=== PATIENT | female | born 1960 | race Caucasian/White ===

== ENCOUNTER 2018-03-26 11:45 | Day surgery (SDC) | payer OTHER ==
[2018-03-26] MEDS: NS 1,000 ML IV (13:30)
[2018-03-26] MEDS ORDERED: LIDOCAINE 2% INJ 100 MG/5 ML SDV (FOR ANES.) As Ordered ×3 (13:44→15:40)
[2018-03-26] MEDS ORDERED: PROPOFOL 200 MG/20 ML VIAL As Ordered ×5 (13:44→15:51)
[2018-03-26] MEDS ORDERED: ePHEDrine SULFATE 25 MG/5 ML(5MG/ML) SYRINGE As Ordered (13:55)
== END 2018-03-26 17:10 | disposition home or self-care (01) ==
LOC: M OPP 11:45
DX: D64.9 Anemia, unspecified (principal); K31.7 Polyp of stomach and duodenum; I10 Essential (primary) hypertension; E78.5 Hyperlipidemia, unspecified; K58.9 Irritable bowel syndrome, unspecified; K64.9 Unspecified hemorrhoids; Z86.010 Personal history of colon polyps; K21.9 Gastro-esophageal reflux disease without esophagitis; R12 Heartburn; R10.2 Pelvic and perineal pain; E66.9 Obesity, unspecified; F17.220 Nicotine dependence, chewing tobacco, uncomplicated; Z88.2 Allergy status to sulfonamides; Z79.899 Other long term (current) drug therapy
CPT/HCPCS: 45378

== ENCOUNTER 2020-03-18 13:13 | Emergency (ER) | payer OTHER ==
[~2020-03-18 13:13] MED LIST: CETI10CH PO; FERR325T82 PO; FLON1SPR NARES; GEMF600T5 PO; HYDR-3713 PO; LISI-538 PO; LOPE2CA PO; MORP-69 PO; MULT1TAB10 PO; OMEP1CAP73 PO; VITA100067 PO
--- NOTE | 2020-03-18 13:41 | REPVR ---
PROCEDURE INFORMATION: Exam: CT Head Without Contrast Exam date and time: 03/18/2020 1:28 PM Age: 60 years old Clinical indication: Altered mental status/memory loss TECHNIQUE: Imaging protocol: Computed tomography of the head without contrast. Radiation optimization: All CT scans at this facility use at least one of these dose optimization techniques: automated exposure control; mA and/or kV adjustment per patient size (includes targeted exams where dose is matched to clinical indication); or iterative reconstruction. COMPARISON: No relevant prior studies available. FINDINGS: Brain: Normal. No hemorrhage. Unremarkable white matter. No mass effect. Cerebral ventricles: No ventriculomegaly. Bones/joints: Unremarkable. No acute fracture. Paranasal sinuses: Visualized sinuses are unremarkable. No fluid levels. Mastoid air cells: Visualized mastoid air cells are well aerated. Soft tissues: Unremarkable. IMPRESSION: No acute intracranial abnormality. Electronically signed by: Sara Alcantar On 03/18/2020 13:40:50 PM
[2020-03-18] MEDS ORDERED: NS 1,000 ML IV ONE ×2 (13:45→16:30)
[2020-03-18] MEDS ORDERED: cefTRIAXone SOD 2 GM in D5W MINI-BAG PLUS 50 ML IV ONE (13:45)
--- NOTE | 2020-03-18 13:54 | REPVR ---
PROCEDURE INFORMATION: Exam: XR Chest, 1 View Exam date and time: 03/18/2020 1:46 PM Age: 60 years old Clinical indication: Other: Altered mental status TECHNIQUE: Imaging protocol: XR of the chest Views: 1 view. COMPARISON: No relevant prior studies available. FINDINGS: Lungs: Hypoinflation, without significant airspace disease. Pleural space: No pleural effusion. Heart/Mediastinum: Borderline cardiomegaly. Bones/joints: Degenerative change. IMPRESSION: Hypoinflation, without significant airspace or pleural disease. Electronically signed by: Ron Neil On 03/18/2020 13:54:21 PM
[2020-03-18 14:00] LABS: VENOUS BASE EXCESS -12.3 (-2.0-2.0); VENOUS HCO3 16.5 MEQ/L (23.0-27.0); VENOUS O2 SATURATION 98.9 % (60.0-80.0); VENOUS PARTIAL PRESSURE CO2 54.1 mmHg (38.0-50.0); VENOUS PARTIAL PRESSURE O2 159.5 mmHg (30.0-50.0); VENOUS PH 7.103 UNITS (7.330-7.430); VENOUS STANDARD HCO3 14.6 MEQ/L; VENOUS TOTAL CO2 18.2 MEQ/L (24.0-28.0)
[2020-03-18] MEDS ORDERED: ACETAMINOPHEN 650 MG SUPP PR ONE (14:00)
[2020-03-18] MEDS ORDERED: ACETAMINOPHEN 650 MG SUPP As Ordered ONE (14:00)
[2020-03-18 14:09] LABS: BASO # 0.1 10^3/uL (0.0-0.2); BASO % 0.5 % (0.0-1.0); EOS # 0.3 10^3/uL (0.0-0.5); EOS % 2.3 % (0.0-3.0); HEMATOCRIT 21.8 % (36.0-47.0); LYMPH # 1.6 10^3/uL (1.5-5.0); LYMPH % 14.6 % (24.0-44.0); MEAN CORPUSCULAR HEMOGLOBIN 31.5 pg (27.0-33.0); MEAN CORPUSCULAR HGB CONC 28.9 g/dl (32.0-36.5); MONO # 1.3 10^3/uL (0.0-0.8); MONO % 11.3 % (0.0-5.0); NEUTROPHILS # 7.7 10^3/uL (1.5-8.5); PLATELET COUNT, AUTOMATED 289 10^3/uL (150-450); WHITE BLOOD COUNT 11.1 10^3/uL (4.0-10.0)
[2020-03-18] MEDS ORDERED: NS 2,840 ML in IV 1 EA IV ONE (14:15)
[2020-03-18 14:23] LABS: HEMOGLOBIN 6.3 g/dl (12.0-15.5)
[2020-03-18 14:35] LABS: ACETAMINOPHEN LEVEL < 2.0 UG/ML (10.0-30.0); ALT/SGPT 21 U/L (12-78); BILIRUBIN,DIRECT 0.2 MG/DL (0.0-0.2); BILIRUBIN,TOTAL 0.3 MG/DL (0.2-1.0); ETHYL ALCOHOL (ETHANOL) < 0.003 % (0.000-0.010); SALICYLATE LEVEL < 1.7 MG/DL (5.0-30.0); THYROID STIMULATING HORMONE 0.432 uIU/ML (0.358-3.740)
[2020-03-18] MEDS ORDERED: NALOXONE INJ 0.4MG/1ML VIAL (J2310 PER 1MG) As Ordered ONE (14:38)
[2020-03-18] MEDS ORDERED: NALOXONE INJ 0.4MG/1ML VIAL (J2310 PER 1MG) IV STA (14:41)
[2020-03-18 14:44] LABS: OSMOLALITY SERUM 303 MOSM/KG (280-301)
[2020-03-18 14:51] LABS: AMPHETAMINES LEVEL URINE NEGATIVE (NEGATIVE); BARBITURATES URINE NEGATIVE (NEGATIVE); BENZODIAZEPINES URINE NEGATIVE (NEGATIVE); CANNABINOIDS URINE NEGATIVE (NEGATIVE); COCAINE METABOLITE URINE NEGATIVE (NEGATIVE); METHADONE URINE NEGATIVE (NEGATIVE); OPIATES URINE POSITIVE (NEGATIVE); PHENCYCLIDINE URINE NEGATIVE (NEGATIVE)
[2020-03-18 14:57] LABS: POTASSIUM SERUM 6.3 MEQ/L (3.5-5.1)
--- NOTE | 2020-03-18 15:36 | REPVR ---
PROCEDURE INFORMATION: Exam: CT Abdomen And Pelvis Without Contrast Exam date and time: 03/18/2020 3:18 PM Age: 60 years old Clinical indication: Abdominal pain; Generalized; Prior surgery; Surgery date: 3-7 days post-operative; Additional info: S/P nephrectomy TECHNIQUE: Imaging protocol: Computed tomography of the abdomen and pelvis without contrast. Radiation optimization: All CT scans at this facility use at least one of these dose optimization techniques: automated exposure control; mA and/or kV adjustment per patient size (includes targeted exams where dose is matched to clinical indication); or iterative reconstruction. COMPARISON: No relevant prior studies available. FINDINGS: Detailed evaluation of the abdominal and pelvic viscera is somewhat limited in the absence of intravenous contrast. Pleural space: Interstitial prominence, mild dependent airspace disease, and trace pleural effusions. Liver: Diffuse fatty infiltration of the liver. Gallbladder and bile ducts: Dependent high attenuation bile and/or calculi in the gallbladder. Pancreas: No pancreatic mass or ductal dilatation. Spleen: Enlarged spleen measuring 12.7 cm in length. Adrenals: Normal right adrenal. Kidneys and ureters: Poorly characterized 3.1 by 1.8 by 2.4 cm ovoid density in the postoperative left nephrectomy bed, which can be re-evaluated on follow-up imaging to ensure interval resolution. Normal right renal morphology. No hydronephrosis. Stomach and bowel: Copious stool in the colon and rectum, consistent with constipation. Appendix: No acute appendicitis. Intraperitoneal space: No significant intraperitoneal fluid or free air. Vasculature: Vascular calcification. Normal caliber of the abdominal aorta. Lymph nodes: Subcentimeter lymph nodes. Urinary bladder: Calderón catheter in intraluminal air in the decompressed bladder. Reproductive: Status post hysterectomy. Bones/joints: Osteopenia. Degenerative change , disc bulging, and Schmorl's nodes. Soft tissues: Subcutaneous edema and emphysema in the abdominal wall. IMPRESSION: 1. Dependent high attenuation bile and/or calculi in the gallbladder. 2. Poorly characterized 3.1 by 1.8 by 2.4 cm ovoid density in the postoperative left nephrectomy bed, which can be re-evaluated on follow-up imaging to ensure interval resolution. 3. Copious stool in the colon and rectum, consistent with constipation. 4. Additional findings as described above. Electronically signed by: Ron Neil On 03/18/2020 15:36:39 PM
[2020-03-18] MEDS ORDERED: SOD POLYSTYRENE SULFONATE SUSP 30 GM/120 ML ENEMA PR ONE (16:00)
[2020-03-18] MEDS ORDERED: D5W 1,000 ML IV SCH (16:45)
[2020-03-18] MEDS ORDERED: PIPERACILLIN/TAZOBACTAM SOD 2.25 GM in D5W MINI-BAG PLUS 50 ML IV SCH (17:00)
[2020-03-18 17:04] VITALS: BP 102/54
[2020-03-18 17:19] VITALS: BP 98/52
[2020-03-18 17:19] LABS: FERRITIN 494 NG/ML (8-252); IRON (FE) 50 UG/DL (50-170); PERCENT SATURATION 21.1 % (13.2-45.0); TOTAL IRON BINDING CAPACITY 237 UG/DL (250-450)
[2020-03-18] MEDS ORDERED: VANCOMYCIN HCL 1,000 MG, VIAL MATE ADAPTER 1 EACH in D5W 250 ML IV SCH (18:00)
[2020-03-18] MEDS ORDERED: SODIUM BICARBONATE 150 MEQ in D5W 1,000 ML IV SCH (18:00)
[2020-03-18 18:04] VITALS: BP 100/54
[2020-03-18 18:41] VITALS: BP 102/73
[2020-03-18] MEDS ORDERED: VANCOMYCIN HCL 1,000 MG, VIAL MATE ADAPTER 1 EACH in D5W 250 ML IV ONE (19:00)
--- NOTE | 2020-03-18 19:42 | ECGEPIP ---
- ED Test Date: 2020-03-18 Pat Name: ANDER TALAVERA Department: Room: - Gender: Female [employer]: caridad : 1960 Requested By: Charo Geiger Order Number: [id number] Reading MD: Neo Hilliard Measurements Intervals [place] Rate: 96 P: 34 OR: 176 QRS: 28 QRSD: 76 T: 31 QT: 337 QTc: 427 Interpretive Statements SINUS RHYTHM LOW VOLTAGE THROUGHOUT SEPTAL MYOCARDIAL INFARCTION, PROBABLY OLD NSTTW ABNORMALITY(S) NO PRIORS FOR COMPARISON Electronically Signed on 03-18-2020 19:42:02 EDT by Neo Hilliard
--- NOTE | 2020-03-19 07:39 | ER ---
NEPHROLOGY CONSULTATION DATE OF CONSULTATION: 03/18/2020 CONSULTATION REQUESTED BY: Caitlin Tamez MD REASON FOR CONSULTATION: Acute renal failure and hyperkalemia. NOTE: Patient is seen in the Emergency Room at the request of admitting physician. HISTORY OF PRESENT ILLNESS: Ms. Foote is a 60-year-old female with known history of hypertension, hyperlipidemia, Vitamin D deficiency, allergies and gastroesophageal reflux disease. Apparently, she underwent a left-sided nephrectomy just about a week ago at [facility] in [place] and was discharged to home. For the last couple of days, she has not been doing well at home and was brought to the Emergency Room today with altered mentation, generalized weakness, twitching and was noticed to have a potassium level of 6.5 and creatinine also of 6.5. A nephrology consultation was requested, and patient was seen in the Emergency Room. PAST MEDICAL AND SURGICAL HISTORY: Patient is not able to provide information at present herself as she is very lethargic and has altered mentation. On review of her chart, her history includes history of hypertension, gastroesophageal reflux disease, hyperlipidemia and Vitamin D deficiency. She had a left-sided nephrectomy just about a week ago at the [facility] in [place] for possible renal mass. FAMILY HISTORY: Noncontributory. PERSONAL AND SOCIAL HISTORY: Patient is not able to provide any information at this point. Her family member is not available in the room at the time of my visit. REVIEW OF SYSTEMS: At present, patient is not able to provide information. According to the available information, she had a left nephrectomy about a week ago, which was most likely laparoscopic or robot-assisted and was not doing well at home for the last couple of days. She had decreased oral intake and developed altered mentation and generalized twitching today, due to which she was brought to the Emergency Room. Other than that, no further information is available. ALLERGIES: She has allergy to sulfa drugs. HOME MEDICATIONS: Include: 1. Hydrocodone. 2. Acetaminophen 5/325 mg one to two tablets as needed for pain. 3. Cetirizine 10 mg as needed for allergies. 4. Flonase allergy relief nasal spray once a day. 5. Gemfibrozil 600 mg one tablet daily. 6. Ferrous sulfate 325 mg daily. 7. Lisinopril 20 mg daily. 8. Morphine sulfate ER 15 mg tablet every 8 hours as needed for severe pain. 9. Multivitamin one tablet daily. 10. Omeprazole 20 mg daily. 11. Vitamin D 1,000 units daily. PHYSICAL EXAMINATION: GENERAL: Patient is quite lethargic. She opens her eyes, but not able to communicate much. VITAL SIGNS: Temperature 98.5 degrees Fahrenheit in the Emergency Room, heart rate 86 per minute, respiratory rate 28 per minute, blood pressure 100/54 mmHg and oxygen saturation 98%. She is currently on 2 liter oxygen via nasal cannula. HEENT: Head is atraumatic. Oral mucosa is dry. NECK: Supple and JVD not elevated. HEART: Heart sounds are regular. No audible pericardial friction rub. LUNGS: Sound clear to auscultation with poor inspiratory effort. ABDOMEN: Fullness and generalized tenderness. Bowel sounds are present. EXTREMITIES: No cyanosis or clubbing. NEUROLOGIC: She is somewhat obtunded and not able to answer questions appropriately, though she does open her eyes and moves her limbs. LABORATORY DATA IN THE EMERGENCY ROOM: Blood gas with pH 7.14 initially, pCO2 48, pO2 157 and bicarb 60. A repeat blood gas a couple of hours later showed pH 7.18, pCO2 40, pO2 78 and bicarb 15. Sodium 138, glucose 105, potassium 6.5, total CO2 initially 18 and repeat one down to 16, BUN 55 and creatinine 6.8. Troponin 0.016. Salicylate level less than 1.7 and Acetaminophen level less than 2.0. Urine opiate screen was positive. IMAGING STUDIES: She had a CAT scan of the abdomen and pelvis done, which showed normal right kidney and some fluid collection and possible hematoma in the surgical bed of her left nephrectomy. There was no hydronephrosis on the right side. Chest x-ray did not show any acute infiltrate or effusion. PROBLEMS: 1. Acute renal failure: Patient just had left nephrectomy done about a week ago. I am not aware of her baseline kidney function at present. Now, she is oliguric and hypotensive with possible sepsis. I will recommend aggressive I.V. fluid hydration and monitoring for her urine output and vital signs closely. There is no emergent need for dialysis at present as all her problems are likely to be corrected medically. 2. Hyperkalemia: This is related to acute renal failure, WALDEMAR inhibitor use and metabolic acidosis. I recommend I.V. sodium bicarbonate infusion and follow-up of her electrolytes. I would also recommend giving her one dose of calcium gluconate 10 mL intravenously. 3. Metabolic acidosis related to acute renal failure and possible sepsis: Sodium bicarbonate infusion is recommended and monitoring of her labs every few hours. I feel that her acidosis is going to correct just medically and she will not require dialysis. 4. Shock: She is hypotensive and possibly septic. She just had surgery recently and one of her abdominal incisions has some erythema. Aggressive I.V. fluid hydration and broad spectrum antibiotic coverage is recommended. Thank you for asking me to participate in the care of Mrs. Foote. I have discussed with the ER physician and also with the admitting physician at length. I recommended for possible transfer to [facility] as patient had major surgery just about a week ago and most of her problems are related to postoperative complications. If she stays here, then we will certainly follow her along with you and monitor closely. CHRISTINA
== END 2020-03-18 18:45 | disposition short-term general hospital (02) ==
LOC: EDBD 13:13 → M ED 13:13 → UNDOADMIN 15:54 → M ED INP 15:54 → ENRESERV 16:06
DX: N17.9 Acute kidney failure, unspecified (principal); A41.9 Sepsis, unspecified organism; I10 Essential (primary) hypertension; K76.0 Fatty (change of) liver, not elsewhere classified; R16.1 Splenomegaly, not elsewhere classified; R19.5 Other fecal abnormalities; M85.80 Other specified disorders of bone density and structure, unspecified site; M51.9 Unspecified thoracic, thoracolumbar and lumbosacral intervertebral disc disorder; R93.2 Abnormal findings on diagnostic imaging of liver and biliary tract; R91.8 Other nonspecific abnormal finding of lung field; E78.5 Hyperlipidemia, unspecified; F11.20 Opioid dependence, uncomplicated; F17.200 Nicotine dependence, unspecified, uncomplicated; Z90.5 Acquired absence of kidney; Z79.899 Other long term (current) drug therapy; Z88.2 Allergy status to sulfonamides
CPT/HCPCS: 36430; 36600; 70450; 71045; 74176; 80047; 80076; 80307; 82140; 82728; 82803; 83550; 83605; 83930; 84132; 84443; 84484; 85025; 85046; 86850; 86900; 86901; 86920; 87040; 87070; 87077; 87186; 87205; 93005; 93041; 96365; 96367; 96368; 96375; 99291; G0480; J0696; J2310; J2543; J3370; P9016

== ENCOUNTER → 2021-10-26 | Outpatient (CLI) | payer OTHER ==
[~2021-10-26] MED LIST changes: -LISI-538 PO; +LISI20TA33 PO
== END ==
LOC: M RAD 08:25
PROVIDERS: ATTEND Nurse Practitioner Family
DX: R11.2 Nausea with vomiting, unspecified (principal); R68.81 Early satiety; K30 Functional dyspepsia
CPT/HCPCS: 78264; A9541

== ENCOUNTER → 2022-03-15 | Outpatient (REF) | payer OTHER | LOC: M LAB REF 16:28 | PROVIDERS: ATTEND Podiatrist | DX: M79.672 Pain in left foot (principal); L03.032 Cellulitis of left toe ==

== ENCOUNTER → 2022-06-19 | Outpatient (CLI) | payer OTHER | LOC: M PLARAD 11:28 | PROVIDERS: ATTEND Internal Medicine Pulmonary Disease | DX: R91.8 Other nonspecific abnormal finding of lung field (principal); Z53.29 Procedure and treatment not carried out because of patient's decision for other reasons ==

== ENCOUNTER → 2023-01-16 | Outpatient (CLI) | payer OTHER | LOC: M RAD 09:23 | PROVIDERS: ATTEND Internal Medicine Pulmonary Disease | DX: R91.8 Other nonspecific abnormal finding of lung field (principal) ==

== ENCOUNTER → 2023-06-15 | Outpatient (CLI) | payer OTHER ==
[2023-06-15 10:19] LABS: BASO # 0.1 10^3/uL (0.0-0.2); BASO % 0.6 % (0.0-1.0); EOS # 0.4 10^3/uL (0.0-0.5); EOS % 4.4 % (0.0-3.0); HEMATOCRIT 44.6 % (36.0-47.0); HEMOGLOBIN 14.9 g/dl (12.0-15.5); LYMPH # 2.2 10^3/uL (1.5-5.0); LYMPH % 26.1 % (24.0-44.0); MEAN CORPUSCULAR HEMOGLOBIN 34.4 pg (27.0-33.0); MEAN CORPUSCULAR HGB CONC 33.4 g/dl (32.0-36.5); MONO # 0.4 10^3/uL (0.0-0.8); NEUTROPHILS # 5.4 10^3/uL (1.5-8.5); NEUTROPHILS % 63.3 % (36.0-66.0); PLATELET COUNT, AUTOMATED 278 10^3/uL (150-450); RED BLOOD COUNT 4.33 10^6/uL (4.00-5.40); WHITE BLOOD COUNT 8.5 10^3/uL (4.0-10.0)
[2023-06-15 10:41] LABS: ERYTHROCYTE SEDIMENTATION RATE 42 mm/hr (0-30)
[2023-06-15 10:44] LABS: ALBUMIN 3.2 G/DL (3.2-5.2); ALKALINE PHOSPHATASE 96 U/L (46-116); ALT/SGPT 28 U/L (7.0-40); AST/SGOT 36 U/L (<34); BILIRUBIN,TOTAL 0.3 MG/DL (0.3-1.2); BLOOD UREA NITROGEN 13 MG/DL (9-23); CALCIUM LEVEL 8.6 MG/DL (8.3-10.6); CARBON DIOXIDE LEVEL 31 MMOL/L (20-31); CHLORIDE LEVEL 105 MMOL/L (98-107); GLOMERULAR FILTRATION RATE 53.2 (>45); GLUCOSE, FASTING 89 MG/DL (74-106); POTASSIUM SERUM 3.7 MMOL/L (3.5-5.1); SODIUM LEVEL 145 MMOL/L (136-145); TOTAL PROTEIN 6.6 G/DL (5.7-8.2)
[2023-06-15 10:47] LABS: THYROXINE (T4) 9.9 UG/DL (4.5-10.9)
[2023-06-15 10:48] LABS: FOLATE 2.8 NG/ML (>5.4)
[2023-06-15 10:54] LABS: FREE THYROXINE INDEX 3.7 % (1.3-4.8); HEMOGLOBIN A1c 5.1 % (4.0-6.0); T UPTAKE 37.3 % (22.5-37.0)
[2023-06-15 11:07] LABS: RHEUMATOID FACTOR QUANT 5.5 IU/ML (<14); VITAMIN B12 LEVEL > 2000 PG/ML (211-911)
[2023-06-21 05:07] LABS: ANTINUCLEAR ANTIBODIES DIRECT Negative (Negative); IMMUNOTYPING SERUM IGA SO 470 mg/dL (87-352); IMMUNOTYPING SERUM IGM SO 82 mg/dL (26-217); SJOGREN'S ANTI SS-A <0.2 AI (0.0-0.9); SJOGREN'S ANTI SS-B <0.2 AI (0.0-0.9); VITAMIN B1 LEVEL WHOLE BLOOD 112.5 nmol/L (66.5-200.0); VITAMIN B6,PYRIDOXAL PHOSPHATE 6.4 ug/L (3.4-65.2); VITAMIN E(ALPHA TOCOPHEROL) 4.8 mg/L (9.0-29.0); VITAMIN E(GAMMA TOCOPHEROL) 1.6 mg/L (0.5-4.9)
== END ==
LOC: M LAB 09:17
PROVIDERS: ATTEND Psychiatry & Neurology Neurology
DX: E11.9 Type 2 diabetes mellitus without complications (principal); E07.9 Disorder of thyroid, unspecified; E53.8 Deficiency of other specified B group vitamins; G60.9 Hereditary and idiopathic neuropathy, unspecified; M35.00 Sjogren syndrome, unspecified